=== PATIENT | male | born 1935 | race Caucasian/White ===

== ENCOUNTER 2017-09-27 10:42 | Inpatient (IN) | payer MEDICARE, OTHER ==
[~2017-09-27] VITALS: Ht 177.8 cm; Wt 61.0 kg
[~2017-09-27 10:42] MED LIST: NO HOME MEDS
[2017-09-27 11:14] LABS: BASOPHILS % (AUTO) 0 % (0-1); EOSINOPHILS % (AUTO) 0 % (0-6); HEMATOCRIT 51.7 % (42.0-52.0); HEMOGLOBIN 17.7 g/dl (14.0-17.9); LYMPHOCYTES # (AUTO) 0.4 X10'3 (1.1-4.8); LYMPHOCYTES % (AUTO) 2.4 % (21-51); MEAN CORPUSCULAR HEMOGLOBIN 33.8 PG (27.0-31.0); MEAN CORPUSCULAR HGB CONC 34.2 % (33.0-36.5); MEAN CORPUSCULAR VOLUME 98.9 FL (78-98); MEAN PLATELET VOLUME 8.4 FL (7.4-10.4); MONOCYTES # (AUTO) 0.8 X10'3 (0-0.9); NEUTROPHILS % (AUTO) 92.6 % (42-75); PLATELET COUNT 191 X10'3 (140-440); RED BLOOD COUNT 5.23 X10'6 (4.70-6.10); RED CELL DISTRIBUTION WIDTH 13.8 % (11.5-14.5); WHITE BLOOD COUNT 16.2 X10'3 (4.5-11.0)
[2017-09-27 11:23] LABS: PROTHROMBIN TIME 10.2 SECONDS (9.0-12.0)
[2017-09-27] MEDS ORDERED: ondansetron/PF 4mg/2ml inj IV ONE (11:25)
[2017-09-27] MEDS ORDERED: normal saline 1000ML IV soln IVB ONE ×2 (11:25)
[2017-09-27 11:27] LABS: TOTAL CELLS COUNTED 100
[2017-09-27 11:28] LABS: PLATELET ESTIMATE NORMAL; TOXIC GRANULATION 1+; TOXIC VACUOLATION 1+
[2017-09-27 11:33] LABS: ALANINE AMINOTRANSFERASE 33 U/L (12-78); ALBUMIN 4.5 G/DL (3.4-5.0); ALBUMIN/GLOBULIN RATIO 1.1 (1.1-1.5); ALKALINE PHOSPHATASE 134 IU/L (46-116); ANION GAP 13 (8-16); ASPARTATE AMINO TRANSFERASE 18 U/L (10-37); BILIRUBIN,TOTAL 2.2 MG/DL (0.1-1.0); BLOOD UREA NITROGEN 68 MG/DL (7-18); BUN/CREATININE RATIO 37.2 (5.4-32.0); CALCIUM 11.3 MG/DL (8.5-10.1); CHLORIDE 95 MMOL/L (99-107); CREATININE 1.83 MG/DL (0.60-1.10); GLUCOSE 153 MG/DL (70-104); POTASSIUM 4.2 MMOL/L (3.5-5.1); SODIUM 139 MMOL/L (135-145); TOTAL CARBON DIOXIDE 31.1 MMOL/L (24-32); TOTAL PROTEIN 8.5 G/DL (6.4-8.2); eGFR 36 ML/MIN
[2017-09-27 11:46] LABS: PARTIAL THROMBOPLASTIN TIME 24 SECONDS (22-32)
[2017-09-27 11:57] LABS: LIPASE 154 U/L (73-393)
[2017-09-27 12:15] LABS: CLARITY,URINE CLEAR (Clear); COLOR,URINE AMBER (Yellow); GLUCOSE, URINE NEGATIVE (Neg); KETONES,URINE TRACE mg/dl (Neg); LEUKOCYTE ESTERASE ,URINE NEGATIVE (Neg); NITRITES, URINE NEGATIVE (Neg); OCCULT BLOOD,URINE NEGATIVE (Neg); PROTEIN,URINE 30 mg/dl (Neg); UA COLLECTION TYPE URINAL; UROBILINOGEN,URINE 0.2 E.U/dL (0.2-1.0)
[2017-09-27 12:21] LABS: BACTERIA,URINE FEW /HPF (Neg); CAL OXALATE CRYSTALS 1+ /HPF (NEGATIVE); COARSE GRANULAR CAST 0-3 /LPF (NEGATIVE); HYALINE CASTS >30 /LPF (NEGATIVE); MUCUS STRANDS MANY /LPF (Neg); RBC,URINE 0-2 /HPF (0-2); SQUAMOUS EPITHELIAL CELL,UR FEW /LPF (FEW); TRANSITIONAL EPI CELLS,URINE FEW /HPF; WBC,URINE 0-4 /HPF (0-4)
[2017-09-27] MEDS ORDERED: ondansetron/PF 4mg/2ml inj IV PRN (16:30)
[2017-09-27] MEDS ORDERED: acetaminophen 325mg tablet PO PRN (16:30)
[2017-09-27] MEDS ORDERED: mag hydrox/Alum hydrox/simeth 30ml oral suspension PO PRN (16:30)
[2017-09-27] MEDS ORDERED: magnesium hydroxide 30ml (MOM) UD suspension PO PRN (16:30)
[2017-09-27] MEDS: normal saline 1000ml 1,000 ML IV SCH (17:04)
[2017-09-27] MEDS: heparin, porcine 5000 units/ml vial SQ SCH (20:32)
[2017-09-28] MEDS: normal saline 1000ml 1,000 ML IV SCH ×2 (02:22→15:55)
[2017-09-28 05:58] LABS: BASOPHILS % (AUTO) 0.2 % (0-1); EOSINOPHILS % (AUTO) 0 % (0-6); HEMOGLOBIN 13.6 g/dl (14.0-17.9); LYMPHOCYTES # (AUTO) 0.4 X10'3 (1.1-4.8); MEAN CORPUSCULAR HEMOGLOBIN 34.3 PG (27.0-31.0); MEAN CORPUSCULAR HGB CONC 35.8 % (33.0-36.5); MEAN CORPUSCULAR VOLUME 95.8 FL (78-98); MEAN PLATELET VOLUME 8.4 FL (7.4-10.4); MONOCYTES # (AUTO) 0.7 X10'3 (0-0.9); MONOCYTES % (AUTO) 9.9 % (2-12); NEUTROPHILS # (AUTO) 5.8 X10'3 (1.8-7.7); NEUTROPHILS % (AUTO) 83.9 % (42-75); PLATELET COUNT 155 X10'3 (140-440); RED BLOOD COUNT 3.97 X10'6 (4.70-6.10); RED CELL DISTRIBUTION WIDTH 13.3 % (11.5-14.5)
[2017-09-28 06:00] VITALS: BP 112/69
[2017-09-28 06:50] LABS: ALANINE AMINOTRANSFERASE 25 U/L (12-78); ALBUMIN 2.9 G/DL (3.4-5.0); ALKALINE PHOSPHATASE 88 IU/L (46-116); ANION GAP 11 (8-16); ASPARTATE AMINO TRANSFERASE 16 U/L (10-37); BILIRUBIN,TOTAL 1.5 MG/DL (0.1-1.0); BLOOD UREA NITROGEN 65 MG/DL (7-18); CALCIUM 8.7 MG/DL (8.5-10.1); CHLORIDE 108 MMOL/L (99-107); CREATININE 0.97 MG/DL (0.60-1.10); GLUCOSE 108 MG/DL (70-104); POTASSIUM 3.2 MMOL/L (3.5-5.1); SODIUM 144 MMOL/L (135-145); TOTAL CARBON DIOXIDE 25.4 MMOL/L (24-32); TOTAL PROTEIN 5.7 G/DL (6.4-8.2); eGFR 74 ML/MIN
[2017-09-28] MEDS: heparin, porcine 5000 units/ml vial SQ SCH ×2 (08:00→20:00)
[2017-09-28 10:00] VITALS: BP 106/55
[2017-09-28] MEDS ORDERED: potassium Cl 40MEQ/NS 500ml 500 ML IV PRN ×4 (10:00→12:40)
[2017-09-28] MEDS ORDERED: potassium Cl 20 mEq SR tablet PO PRN ×4 (10:00→12:40)
[2017-09-28] MEDS ORDERED: proCHLORperazine 10 MG/2 ml inj IV PRN (10:00)
[2017-09-28] MEDS ORDERED: K and/or MAG REPLACEMENT MC SCH (12:40)
[2017-09-28 18:00] VITALS: BP 109/69
[2017-09-28 22:00] VITALS: BP 95/61
[2017-09-29] MEDS: normal saline 1000ml 1,000 ML IV SCH (04:45)
[2017-09-29 05:51] LABS: BASOPHILS % (AUTO) 0.3 % (0-1); EOSINOPHILS # (AUTO) 0.1 X10'3 (0-0.9); EOSINOPHILS % (AUTO) 1.3 % (0-6); HEMATOCRIT 38.5 % (42.0-52.0); HEMOGLOBIN 13.5 g/dl (14.0-17.9); LYMPHOCYTES # (AUTO) 0.6 X10'3 (1.1-4.8); LYMPHOCYTES % (AUTO) 11.3 % (21-51); MEAN CORPUSCULAR HEMOGLOBIN 34.4 PG (27.0-31.0); MEAN CORPUSCULAR HGB CONC 35.1 % (33.0-36.5); MEAN PLATELET VOLUME 8.8 FL (7.4-10.4); MONOCYTES # (AUTO) 0.5 X10'3 (0-0.9); MONOCYTES % (AUTO) 9.6 % (2-12); NEUTROPHILS # (AUTO) 4.4 X10'3 (1.8-7.7); NEUTROPHILS % (AUTO) 77.5 % (42-75); PLATELET COUNT 139 X10'3 (140-440); RED BLOOD COUNT 3.92 X10'6 (4.70-6.10); RED CELL DISTRIBUTION WIDTH 14.1 % (11.5-14.5); WHITE BLOOD COUNT 5.6 X10'3 (4.5-11.0)
[2017-09-29 06:18] LABS: ALANINE AMINOTRANSFERASE 26 U/L (12-78); ALBUMIN 2.7 G/DL (3.4-5.0); ALBUMIN/GLOBULIN RATIO 0.9 (1.1-1.5); ALKALINE PHOSPHATASE 80 IU/L (46-116); ANION GAP 6 (8-16); ASPARTATE AMINO TRANSFERASE 19 U/L (10-37); BILIRUBIN,TOTAL 1.2 MG/DL (0.1-1.0); BLOOD UREA NITROGEN 35 MG/DL (7-18); BUN/CREATININE RATIO 45.5 (5.4-32.0); CALCIUM 8.7 MG/DL (8.5-10.1); CHLORIDE 111 MMOL/L (99-107); CREATININE 0.77 MG/DL (0.60-1.10); GLUCOSE 79 MG/DL (70-104); POTASSIUM 3.9 MMOL/L (3.5-5.1); SODIUM 145 MMOL/L (135-145); TOTAL CARBON DIOXIDE 28.2 MMOL/L (24-32); TOTAL PROTEIN 5.6 G/DL (6.4-8.2); eGFR > 90 ML/MIN
[2017-09-29] MEDS ORDERED: multivitamins, therapeutics tablet PO SCH (08:00)
== END 2017-09-29 10:07 | disposition home or self-care (01) | DRG 394 ==
LOC: ER 10:43 → ED HOLD 16:27 → EDBEDREQDT 09-28 01:28 → EDBEDREQTM 09-28 01:28 → ORTHO 4S 09-28 01:56
PROVIDERS: ADMIT Internal Medicine; ATTEND Surgery
DX: K40.30 Unilateral inguinal hernia, with obstruction, without gangrene, not specified as recurrent (principal); N17.9 Acute kidney failure, unspecified; Z96.643 Presence of artificial hip joint, bilateral; Z88.2 Allergy status to sulfonamides; Z80.0 Family history of malignant neoplasm of digestive organs
CPT/HCPCS: 36415; 71045; 74018; 74176; 80053; 81001; 83690; 84484; 85025; 85610; 85730; 87070; 96361; 96374; 97162; 97530; 99285; A6209; A6212; A6213; J0780; J1644; J2405; J3480; J7030

== ENCOUNTER 2018-06-25 12:42 | Emergency (ER) | payer MEDICARE ==
[~2018-06-25] VITALS: Ht 162.6 cm; Wt 45.0 kg
[2018-06-25 13:35] LABS: BASOPHILS % (AUTO) 0.2 % (0-1); EOSINOPHILS % (AUTO) 0.1 % (0-6); HEMATOCRIT 42.6 % (42.0-52.0); HEMOGLOBIN 14.4 g/dl (14.0-17.9); LYMPHOCYTES # (AUTO) 0.6 X10'3 (1.1-4.8); LYMPHOCYTES % (AUTO) 9.4 % (21-51); MEAN CORPUSCULAR HEMOGLOBIN 34.1 PG (27.0-31.0); MEAN CORPUSCULAR HGB CONC 33.8 % (33.0-36.5); MEAN CORPUSCULAR VOLUME 100.7 FL (78-98); MEAN PLATELET VOLUME 8.9 FL (7.4-10.4); MONOCYTES # (AUTO) 0.4 X10'3 (0-0.9); MONOCYTES % (AUTO) 5.6 % (2-12); NEUTROPHILS # (AUTO) 5.6 X10'3 (1.8-7.7); NEUTROPHILS % (AUTO) 84.7 % (42-75); PLATELET COUNT 75 X10'3 (140-440); RED BLOOD COUNT 4.23 X10'6 (4.70-6.10); RED CELL DISTRIBUTION WIDTH 14.9 % (11.5-14.5); WHITE BLOOD COUNT 6.6 X10'3 (4.5-11.0)
[2018-06-25 13:47] LABS: PROTHROMBIN TIME 9.8 SECONDS (9.0-12.0)
[2018-06-25 13:48] LABS: ALANINE AMINOTRANSFERASE 35 U/L (12-78); ALBUMIN 4.1 G/DL (3.4-5.0); ALBUMIN/GLOBULIN RATIO 1.4 (1.1-1.5); ALKALINE PHOSPHATASE 128 IU/L (46-116); ANION GAP 12 (8-16); ASPARTATE AMINO TRANSFERASE 22 U/L (10-37); BILIRUBIN,TOTAL 1.3 MG/DL (0.1-1.0); BLOOD UREA NITROGEN 22 MG/DL (7-18); BUN/CREATININE RATIO 33.3 (5.4-32.0); CALCIUM 10.5 MG/DL (8.5-10.1); CHLORIDE 102 MMOL/L (99-107); CREATININE 0.66 MG/DL (0.60-1.10); GLUCOSE 99 MG/DL (70-104); POTASSIUM 4.8 MMOL/L (3.5-5.1); SODIUM 140 MMOL/L (135-145); TOTAL CARBON DIOXIDE 26.1 MMOL/L (24-32); TOTAL PROTEIN 7.1 G/DL (6.4-8.2); eGFR > 90 ML/MIN
[2018-06-25 15:00] VITALS: BP 126/70
[2018-06-25 15:27] LABS: CLARITY,URINE SLIGHTLY CLOUDY (Clear); COLOR,URINE YELLOW (Yellow); GLUCOSE, URINE NEGATIVE (Neg); KETONES,URINE 40 mg/dl (Neg); LEUKOCYTE ESTERASE ,URINE NEGATIVE (Neg); NITRITES, URINE NEGATIVE (Neg); OCCULT BLOOD,URINE NEGATIVE (Neg); PH,URINE 6.5 (4.8-8.0); PROTEIN,URINE NEGATIVE (Neg); UROBILINOGEN,URINE 0.2 E.U/dL (0.2-1.0)
[2018-06-25 15:28] LABS: UA COLLECTION TYPE CLN CATCH MIDSTREAM
[2018-06-25 15:39] LABS: HYALINE CASTS 0-3 /LPF (NEGATIVE); MUCUS STRANDS FEW /LPF (Neg); SQUAMOUS EPITHELIAL CELL,UR FEW /LPF (FEW)
[2018-06-25 15:43] LABS: AMORPHOUS URATES 1+; BACTERIA,URINE FEW /HPF (Neg); RBC,URINE 0-2 /HPF (0-2); WBC,URINE 0-4 /HPF (0-4)
== END 2018-06-25 17:06 | disposition home or self-care (01) ==
LOC: ER 12:43
DX: R10.31 Right lower quadrant pain (principal); R10.11 Right upper quadrant pain; Z88.2 Allergy status to sulfonamides; Z98.890 Other specified postprocedural states
CPT/HCPCS: 36415; 74176; 80053; 81001; 85025; 85610; 99284

== ENCOUNTER 2018-08-31 11:37 | Emergency (ER) | payer MEDICARE ==
[~2018-08-31] VITALS: Ht 162.6 cm; Wt 57.0 kg
[2018-08-31 12:27] VITALS: BP 131/67
[2018-08-31 15:18] LABS: CLARITY,URINE CLEAR (Clear); COLOR,URINE YELLOW (Yellow); GLUCOSE, URINE NEGATIVE (Neg); KETONES,URINE 15 mg/dl (Neg); LEUKOCYTE ESTERASE ,URINE NEGATIVE (Neg); NITRITES, URINE NEGATIVE (Neg); OCCULT BLOOD,URINE NEGATIVE (Neg); PROTEIN,URINE TRACE mg/dl (Neg); UROBILINOGEN,URINE 0.2 E.U/dL (0.2-1.0)
[2018-08-31 15:23] LABS: UA COLLECTION TYPE URINAL
[2018-08-31 15:25] LABS: WBC,URINE 0-4 /HPF (0-4)
[2018-08-31 15:26] LABS: BACTERIA,URINE NONE SEEN /HPF (Neg); RBC,URINE NONE SEEN /HPF (0-2); SQUAMOUS EPITHELIAL CELL,UR FEW /LPF (FEW)
[2018-08-31 15:34] LABS: ALANINE AMINOTRANSFERASE 32 U/L (12-78); ALBUMIN 3.9 G/DL (3.4-5.0); ALBUMIN/GLOBULIN RATIO 1.3 (1.1-1.5); ALKALINE PHOSPHATASE 198 IU/L (46-116); ANION GAP 7 (8-16); ASPARTATE AMINO TRANSFERASE 25 U/L (10-37); BILIRUBIN,TOTAL 1.5 MG/DL (0.1-1.0); BLOOD UREA NITROGEN 25 MG/DL (7-18); BUN/CREATININE RATIO 38.5 (5.4-32.0); CHLORIDE 104 MMOL/L (99-107); CREATININE 0.65 MG/DL (0.60-1.10); GLUCOSE 93 MG/DL (70-104); LIPASE 74 U/L (73-393); POTASSIUM 4.3 MMOL/L (3.5-5.1); SODIUM 140 MMOL/L (135-145); TOTAL CARBON DIOXIDE 28.6 MMOL/L (24-32); eGFR > 90 ML/MIN
[2018-08-31 15:54] LABS: BASOPHILS # (AUTO) 0.1 X10'3 (0-0.2); BASOPHILS % (AUTO) 0.9 % (0-1); EOSINOPHILS % (AUTO) 0.7 % (0-6); HEMATOCRIT 43.7 % (42.0-52.0); HEMOGLOBIN 14.6 g/dl (14.0-17.9); LYMPHOCYTES # (AUTO) 0.5 X10'3 (1.1-4.8); LYMPHOCYTES % (AUTO) 8.4 % (21-51); MEAN CORPUSCULAR HEMOGLOBIN 34.2 PG (27.0-31.0); MEAN CORPUSCULAR HGB CONC 33.5 g/dL (33.0-36.5); MEAN CORPUSCULAR VOLUME 102.2 FL (78-98); MEAN PLATELET VOLUME 8.9 FL (7.4-10.4); MONOCYTES # (AUTO) 0.4 X10'3 (0-0.9); MONOCYTES % (AUTO) 7.5 % (2-12); NEUTROPHILS # (AUTO) 4.9 X10'3 (1.8-7.7); NEUTROPHILS % (AUTO) 82.5 % (42-75); PLATELET COUNT 57 X10'3 (140-440); RED BLOOD COUNT 4.27 X10'6 (4.70-6.10); WHITE BLOOD COUNT 5.9 X10'3 (4.5-11.0)
== END 2018-08-31 17:09 | disposition home or self-care (01) ==
LOC: ER 11:37
DX: K42.9 Umbilical hernia without obstruction or gangrene (principal); K59.00 Constipation, unspecified; Z88.2 Allergy status to sulfonamides
CPT/HCPCS: 36415; 74176; 80053; 81001; 83690; 85025; 99284

== ENCOUNTER 2019-06-05 09:52 | Inpatient (IN) | payer MEDICARE ==
[~2019-06-05] VITALS: Ht 160 cm; Wt 56.0 kg
--- NOTE | 2019-06-05 10:14 | NUR ---
patient to ct.
[2019-06-05 10:56] LABS: BASOPHILS % (AUTO) 0.7 % (0-1); EOSINOPHILS # (AUTO) 0.1 X10'3 (0-0.9); EOSINOPHILS % (AUTO) 1.5 % (0-6); HEMATOCRIT 43.9 % (42.0-52.0); HEMOGLOBIN 14.9 g/dl (14.0-17.9); LYMPHOCYTES # (AUTO) 0.6 X10'3 (1.1-4.8); LYMPHOCYTES % (AUTO) 9.8 % (21-51); MEAN CORPUSCULAR HEMOGLOBIN 35.3 PG (27.0-31.0); MEAN CORPUSCULAR VOLUME 104.1 FL (78-98); MEAN PLATELET VOLUME 9.9 FL (7.4-10.4); MONOCYTES # (AUTO) 0.4 X10'3 (0-0.9); MONOCYTES % (AUTO) 6.2 % (2-12); NEUTROPHILS # (AUTO) 4.7 X10'3 (1.8-7.7); NEUTROPHILS % (AUTO) 81.8 % (42-75); PLATELET COUNT 62 X10'3 (140-440); RED BLOOD COUNT 4.22 X10'6 (4.70-6.10); RED CELL DISTRIBUTION WIDTH 14.9 % (11.5-14.5); WHITE BLOOD COUNT 5.8 X10'3 (4.5-11.0)
[2019-06-05 11:01] LABS: PARTIAL THROMBOPLASTIN TIME 26 SECONDS (22-32)
[2019-06-05 11:05] LABS: ALANINE AMINOTRANSFERASE 35 U/L (12-78); ALBUMIN/GLOBULIN RATIO 1.4 (1.1-1.5); ALKALINE PHOSPHATASE 96 IU/L (46-116); ANION GAP 8 (8-16); ASPARTATE AMINO TRANSFERASE 23 U/L (10-37); BILIRUBIN,TOTAL 1.1 MG/DL (0.1-1.0); BLOOD UREA NITROGEN 26 MG/DL (7-18); BUN/CREATININE RATIO 41.3 (5.4-32.0); CALCIUM 9.7 MG/DL (8.5-10.1); CHLORIDE 108 MMOL/L (99-107); CREATININE 0.63 MG/DL (0.60-1.10); GLUCOSE 88 MG/DL (70-104); POTASSIUM 4.2 MMOL/L (3.5-5.1); SODIUM 145 MMOL/L (135-145); TOTAL CARBON DIOXIDE 28.7 MMOL/L (24-32); TOTAL PROTEIN 6.9 G/DL (6.4-8.2); eGFR > 90 ML/MIN
[2019-06-05 11:08] LABS: TROPONIN I < 0.04 NG/ML (0.0-0.05)
[2019-06-05 11:42] LABS: CLARITY,URINE CLEAR (Clear); COLOR,URINE YELLOW (Yellow); GLUCOSE, URINE NEGATIVE (Neg); KETONES,URINE 15 mg/dl (Neg); LEUKOCYTE ESTERASE ,URINE NEGATIVE (Neg); NITRITES, URINE NEGATIVE (Neg); OCCULT BLOOD,URINE NEGATIVE (Neg); PH,URINE 6.5 (4.8-8.0); PROTEIN,URINE NEGATIVE (Neg); UA COLLECTION TYPE STRAIGHT CATH; UROBILINOGEN,URINE 0.2 E.U/dL (0.2-1.0)
[2019-06-05] MEDS ORDERED: ondansetron/PF 4mg/2ml inj IV PRN (12:30)
[2019-06-05] MEDS ORDERED: acetaminophen 325mg tablet PO PRN (12:30)
[2019-06-05] MEDS ORDERED: mag hydrox/Alum hydrox/simeth 30ml oral suspension PO PRN (12:30)
[2019-06-05] MEDS ORDERED: magnesium hydroxide 30ml (MOM) UD suspension PO PRN (12:30)
[2019-06-05] MEDS ORDERED: normal saline 1000ML IV soln IVB ONE (12:35)
--- NOTE | 2019-06-05 13:09 | NUR ---
Patient will be going to MRI and then to floor, Neal MICHEL aware and will inform Sandrita MICHEL regarding change in plan of care/transport.
[2019-06-05 13:11] LABS: CHOL/HDL RATIO 2.4 (0.00-4.99); CHOLESTEROL 181 MG/DL (0-200); HDL CHOLESTEROL 75 MG/DL (35-60); LDL CHOLESTEROL 106 MG/DL (50-100); TRIGLYCERIDES 55 MG/DL (20-135)
--- NOTE | 2019-06-05 14:00 | NUR ---
Patient in room ORTHO 4020. I have received report from DEVANG MICHEL and had the opportunity to ask questions and assume patient care.
[2019-06-05 14:10] VITALS: BP 102/61
[2019-06-05] MEDS ORDERED: aspirin 325mg tablet PO ONE (14:20)
[2019-06-05] MEDS: normal saline 1000ml 1,000 ML IV SCH ×2 (14:22→22:28)
--- NOTE | 2019-06-05 15:36 | NUR ---
PAGER ID: [phone] MESSAGE: ESTUARDO [phone] RE: LIBORIO [id number] POSITIVE STROKE, LDL 106 NEEDS STATIN PLEASE.
[2019-06-05 18:00] VITALS: BP 109/85
--- NOTE | 2019-06-05 18:00 | NUR ---
Received report from Palmer MICHEL. assumed care of patient.
--- NOTE | 2019-06-05 18:03 | NUR ---
Problems reprioritized. Patient report given, questions answered & plan of care reviewed with DRAGAN RN.
[2019-06-05] MEDS: heparin, porcine 5000 units/ml vial SQ SCH (20:00)
--- NOTE | 2019-06-05 20:06 | NUR ---
patient's platelet level was 62. Called Dr. Weston inquiring about patient heparin dose tonight at 20:00. Trista advised to hold the heparin for tonight, place patient on SCD's and readjust heparin dose in the morning. will continue to monitor patient.
[2019-06-05] MEDS: atorvastatin 20mg tablet PO SCH (20:20)
[2019-06-05 22:00] VITALS: BP 122/69
--- NOTE | 2019-06-06 00:10 | NUR ---
pt attempted to get out of bed. I went in there and asked the patient if he needed something. pt was a little confused and disoriented at this time. pt denied any pain. pt requested to get into the recliner because the bed was uncomfortable. I helped change the patient because he had an episode of incontinence. he was getting a little agitated with Jamil MICHEL and I. we tried to reassure him and let him know what we were doing. pt is currently in recliner with clean sheets and is currently resting comfortably. will continue to monitor.
[2019-06-06] MEDS: normal saline 1000ml 1,000 ML IV SCH ×2 (00:14→09:16)
[2019-06-06 02:00] VITALS: BP 135/74
[2019-06-06 05:31] LABS: BASOPHILS # (AUTO) 0.1 X10'3 (0-0.2); BASOPHILS % (AUTO) 0.9 % (0-1); EOSINOPHILS # (AUTO) 0.1 X10'3 (0-0.9); EOSINOPHILS % (AUTO) 1.4 % (0-6); HEMATOCRIT 38.8 % (42.0-52.0); HEMOGLOBIN 13.6 g/dl (14.0-17.9); LYMPHOCYTES # (AUTO) 0.8 X10'3 (1.1-4.8); LYMPHOCYTES % (AUTO) 12.2 % (21-51); MEAN CORPUSCULAR HEMOGLOBIN 35.3 PG (27.0-31.0); MEAN CORPUSCULAR HGB CONC 35.1 g/dL (33.0-36.5); MEAN CORPUSCULAR VOLUME 100.7 FL (78-98); MEAN PLATELET VOLUME 9.8 FL (7.4-10.4); MONOCYTES # (AUTO) 0.4 X10'3 (0-0.9); MONOCYTES % (AUTO) 6.4 % (2-12); NEUTROPHILS # (AUTO) 5.3 X10'3 (1.8-7.7); NEUTROPHILS % (AUTO) 79.1 % (42-75); PLATELET COUNT 63 X10'3 (140-440); RED BLOOD COUNT 3.86 X10'6 (4.70-6.10); RED CELL DISTRIBUTION WIDTH 14.5 % (11.5-14.5); WHITE BLOOD COUNT 6.7 X10'3 (4.5-11.0)
[2019-06-06 05:45] LABS: ALBUMIN 3.4 G/DL (3.4-5.0); ANION GAP 9 (8-16); BLOOD UREA NITROGEN 21 MG/DL (7-18); BUN/CREATININE RATIO 37.5 (5.4-32.0); CALCIUM 8.8 MG/DL (8.5-10.1); CHLORIDE 106 MMOL/L (99-107); CREATININE 0.56 MG/DL (0.60-1.10); GLUCOSE 90 MG/DL (70-104); POTASSIUM 3.9 MMOL/L (3.5-5.1); SODIUM 140 MMOL/L (135-145); eGFR > 90 ML/MIN
[2019-06-06 06:00] VITALS: BP 93/65
--- NOTE | 2019-06-06 06:00 | NUR ---
Gave report to Amisha MICHEL.
--- NOTE | 2019-06-06 06:11 | NUR ---
received report from edwin link
[2019-06-06] MEDS: heparin, porcine 5000 units/ml vial SQ SCH ×2 (07:59→20:00)
[2019-06-06] MEDS: aspirin 81mg tab.chew PO SCH (08:05)
[2019-06-06 10:00] VITALS: BP 101/65
--- NOTE | 2019-06-06 13:27 | NUR ---
Paged Corine regarding pt lab sets. PAGER ID: [phone] MESSAGE: [phone] Shine: Unable to order D3 or Folate lab set. Labs needs to be ordered and approved by pathologist available only during the week. Thanks -Stephany [phone]
[2019-06-06 14:00] VITALS: BP 93/55
[2019-06-06 18:00] VITALS: BP 96/61
--- NOTE | 2019-06-06 18:14 | NUR ---
gave report to edwin baker
--- NOTE | 2019-06-06 18:43 | NUR ---
REPORT REC'D FROM ANAND HALL. AND ANAND LUNA.
[2019-06-06] MEDS: atorvastatin 20mg tablet PO SCH (20:15)
[2019-06-06 22:00] VITALS: BP 127/57
--- NOTE | 2019-06-06 22:51 | NUR ---
pt is taking off gown and is getting resistive to care. he is confused about his whereabouts, reoriented by staff but is still confused. tabs alarm to gown, bedding changed for incontinence. pt is not a candidate for condomcatheter as he is pulling at lines. SL at this time.
--- NOTE | 2019-06-07 02:52 | NUR ---
PT IS RESTLESS AND IS MORE AGGITATED WITH SCD'S ON. PULLING AT CLOTHING AND SCD'S , WILL REMOVE FOR BREAK.
[2019-06-07 06:00] VITALS: BP 80/57
--- NOTE | 2019-06-07 06:02 | NUR ---
REPORT GIVEN TO ANAND HALL.
--- NOTE | 2019-06-07 06:09 | NUR ---
received report from edwin baker
[2019-06-07 06:18] LABS: BASOPHILS # (AUTO) 0.1 X10'3 (0-0.2); BASOPHILS % (AUTO) 1.2 % (0-1); EOSINOPHILS # (AUTO) 0.2 X10'3 (0-0.9); EOSINOPHILS % (AUTO) 3.5 % (0-6); HEMATOCRIT 36.4 % (42.0-52.0); HEMOGLOBIN 12.7 g/dl (14.0-17.9); LYMPHOCYTES # (AUTO) 0.9 X10'3 (1.1-4.8); MEAN CORPUSCULAR HEMOGLOBIN 35.5 PG (27.0-31.0); MEAN CORPUSCULAR HGB CONC 34.9 g/dL (33.0-36.5); MEAN CORPUSCULAR VOLUME 101.7 FL (78-98); MEAN PLATELET VOLUME 9.4 FL (7.4-10.4); MONOCYTES # (AUTO) 0.4 X10'3 (0-0.9); MONOCYTES % (AUTO) 7.2 % (2-12); NEUTROPHILS # (AUTO) 3.6 X10'3 (1.8-7.7); NEUTROPHILS % (AUTO) 71.1 % (42-75); PLATELET COUNT 54 X10'3 (140-440); RED BLOOD COUNT 3.58 X10'6 (4.70-6.10); RED CELL DISTRIBUTION WIDTH 14.3 % (11.5-14.5); WHITE BLOOD COUNT 5.1 X10'3 (4.5-11.0)
[2019-06-07 06:32] LABS: ANION GAP 8 (8-16); BLOOD UREA NITROGEN 20 MG/DL (7-18); BUN/CREATININE RATIO 30.8 (5.4-32.0); CALCIUM 8.9 MG/DL (8.5-10.1); CHLORIDE 108 MMOL/L (99-107); CREATININE 0.65 MG/DL (0.60-1.10); GLUCOSE 82 MG/DL (70-104); POTASSIUM 3.8 MMOL/L (3.5-5.1); SODIUM 141 MMOL/L (135-145); TOTAL CARBON DIOXIDE 25.5 MMOL/L (24-32); eGFR > 90 ML/MIN
[2019-06-07 06:40] LABS: PLATELET ESTIMATE DECREASED
--- NOTE | 2019-06-07 06:40 | NUR ---
sent a page to hospitalist b/c tele called to tell me that pts heart rate is in the 40s and pt is in [place], no new orders at this time, continue to monitor
[2019-06-07] MEDS: aspirin 81mg tab.chew PO SCH (07:05)
[2019-06-07] MEDS: heparin, porcine 5000 units/ml vial SQ SCH ×2 (07:05→20:00)
[2019-06-07 10:00] VITALS: BP 86/52
[2019-06-07 14:00] VITALS: BP 97/62
--- NOTE | 2019-06-07 18:09 | NUR ---
GAVE REPORT TO ANAND CISNEROS
--- NOTE | 2019-06-07 18:10 | NUR ---
RECEIVED REPORT FROM ISABEL MICHEL AND ASSUMED PATIENT CARE
[2019-06-07 18:11] VITALS: BP 94/60
--- NOTE | 2019-06-07 20:21 | NUR ---
DR. GUY CALLED REGARDING LOW PLATELET LEVEL AND ADMINISTRATION OF 2000 DOSE OF HEPARIN. ADVISED FOLLOWING UP WITH [facility] WHO IS MANAGING PATIENTS CARE.
[2019-06-07] MEDS: atorvastatin 20mg tablet PO SCH (20:24)
[2019-06-07 22:05] VITALS: BP 103/67
[2019-06-08 06:00] VITALS: BP 81/41
--- NOTE | 2019-06-08 06:06 | NUR ---
RECEIVED REPORT FROM ANAND CISNEROS
--- NOTE | 2019-06-08 06:13 | NUR ---
REPORT GIVEN TO ISABEL MICHEL
[2019-06-08] MEDS: heparin, porcine 5000 units/ml vial SQ SCH (07:53)
[2019-06-08] MEDS: aspirin 81mg tab.chew PO SCH (07:53)
--- NOTE | 2019-06-08 07:54 | NUR ---
SINCE PT HAS BEEN IN HOSPITAL, HOSPITALIST AWARE OF PT LOW PLT LEVEL, UNABLE TO ADMIN HEPARIN FOR PT LOW PLT LEVEL, CONTINUE TO MONITOR
[2019-06-08 10:00] VITALS: BP 115/65
--- NOTE | 2019-06-08 14:38 | NUR ---
gave report to edwin baum at [facility]
--- NOTE | 2019-06-08 16:20 | NUR ---
PT D/C WITH ALL BELONGINGS ACCOMPANIED BY AND [place] PERSON[employer]EL TO GO TO [facility]
== END 2019-06-08 16:15 | DRG 66 ==
LOC: ER 09:53 → ED HOLD 12:28 → ORTHO 4S 14:06
PROVIDERS: ADMIT Family Medicine; ATTEND Hospitalist
DX: I63.9 Cerebral infarction, unspecified (principal); F03.90 Unspecified dementia, unspecified severity, without behavioral disturbance, psychotic disturbance, mood disturbance, and anxiety; Z86.73 Personal history of transient ischemic attack (TIA), and cerebral infarction without residual deficits; Z88.2 Allergy status to sulfonamides
CPT/HCPCS: 36415; 70450; 70544; 70551; 71045; 80048; 80053; 80061; 81003; 82607; 82948; 84443; 84484; 85025; 85610; 85730; 87081; 92508; 92616; 93308; 93880; 97110; 97116; 97162; 97530; 99285; G0378; J1644; J7030

== ENCOUNTER 2019-12-13 06:10 | Emergency (ER) | payer MEDICARE ==
[~2019-12-13] VITALS: Ht 167.6 cm; Wt 60.0 kg
[2019-12-13] MEDS ORDERED: TETanus/Pertussis (Acell)/Diphther VAC/PF (Tdap-Adult) 0.5ml syringe IMVAC ONE (06:25)
[2019-12-13] MEDS ORDERED: bacitracin 15gm ointment TP ONE (06:55)
[2019-12-13] MEDS ORDERED: acetaminophen 325mg tablet PO ONE (07:25)
[2019-12-13 11:33] VITALS: BP 110/60
== END 2019-12-13 11:37 | disposition home or self-care (01) ==
LOC: ER 06:11
DX: S51.811A Laceration without foreign body of right forearm, initial encounter (principal); S16.1XXA Strain of muscle, fascia and tendon at neck level, initial encounter; T14.8XXA Other injury of unspecified body region, initial encounter; F03.90 Unspecified dementia, unspecified severity, without behavioral disturbance, psychotic disturbance, mood disturbance, and anxiety; Z88.2 Allergy status to sulfonamides; W18.30XA Fall on same level, unspecified, initial encounter; Y93.89 Activity, other specified; Y92.89 Other specified places as the place of occurrence of the external cause; Y99.8 Other external cause status
CPT/HCPCS: 70450; 72125; 90471; 90715; 99285

== ENCOUNTER 2019-12-14 12:35 | Emergency (ER) | payer MEDICARE ==
[~2019-12-14] VITALS: Ht 167.6 cm; Wt 60.3 kg
--- NOTE | 2019-12-14 13:18 | NUR ---
per ems unit [address], due to home conditions he will be filing an aps report. stephanie Fitzgerald.
[2019-12-14] MEDS ORDERED: ketorolac tromethamine 15mg/ml inj. IM ONE (13:50)
[2019-12-14 15:01] VITALS: BP 110/78
== END 2019-12-14 15:03 | disposition home or self-care (01) ==
LOC: ER 12:35
DX: M25.511 Pain in right shoulder (principal); F03.90 Unspecified dementia, unspecified severity, without behavioral disturbance, psychotic disturbance, mood disturbance, and anxiety; Z98.890 Other specified postprocedural states; Z88.2 Allergy status to sulfonamides
CPT/HCPCS: 73030; 96372; 99284; J1885

== ENCOUNTER 2020-02-25 18:41 | Emergency (ER) | payer MEDICARE ==
[~2020-02-25] VITALS: Ht 167.6 cm; Wt 58.2 kg
[2020-02-25 19:58] LABS: BASOPHILS # (AUTO) 0.1 X10'3 (0-0.2); BASOPHILS % (AUTO) 1.1 % (0-1); EOSINOPHILS # (AUTO) 0.1 X10'3 (0-0.9); EOSINOPHILS % (AUTO) 2.1 % (0-6); HEMATOCRIT 38.3 % (42.0-52.0); LYMPHOCYTES # (AUTO) 0.9 X10'3 (1.1-4.8); LYMPHOCYTES % (AUTO) 14.4 % (21-51); MEAN CORPUSCULAR HEMOGLOBIN 33.6 PG (27.0-31.0); MEAN CORPUSCULAR HGB CONC 34.1 g/dL (33.0-36.5); MEAN CORPUSCULAR VOLUME 98.5 FL (78-98); MEAN PLATELET VOLUME 9.7 FL (7.4-10.4); MONOCYTES # (AUTO) 0.5 X10'3 (0-0.9); NEUTROPHILS # (AUTO) 4.4 X10'3 (1.8-7.7); NEUTROPHILS % (AUTO) 74.4 % (42-75); PLATELET COUNT 75 X10'3 (140-440); RED BLOOD COUNT 3.89 X10'6 (4.70-6.10); RED CELL DISTRIBUTION WIDTH 15.2 % (11.5-14.5); WHITE BLOOD COUNT 5.9 X10'3 (4.5-11.0)
[2020-02-25 20:19] LABS: ALANINE AMINOTRANSFERASE 25 U/L (12-78); ALBUMIN 3.4 G/DL (3.4-5.0); ALBUMIN/GLOBULIN RATIO 1.1 (1.1-1.5); ALKALINE PHOSPHATASE 312 IU/L (46-116); ANION GAP 7 (8-16); ASPARTATE AMINO TRANSFERASE 17 U/L (10-37); BLOOD UREA NITROGEN 24 MG/DL (7-18); CALCIUM 9.6 MG/DL (8.5-10.1); CHLORIDE 109 MMOL/L (99-107); CREATININE 0.75 MG/DL (0.60-1.10); GLUCOSE 115 MG/DL (70-104); SODIUM 141 MMOL/L (135-145); TOTAL PROTEIN 6.4 G/DL (6.4-8.2); eGFR > 90 ML/MIN
[2020-02-25 20:32] LABS: CLARITY,URINE CLEAR (Clear); COLOR,URINE AMBER (Yellow); GLUCOSE, URINE NEGATIVE (Neg); KETONES,URINE TRACE mg/dl (Neg); LEUKOCYTE ESTERASE ,URINE NEGATIVE (Neg); NITRITES, URINE NEGATIVE (Neg); OCCULT BLOOD,URINE NEGATIVE (Neg); PH,URINE 5.5 (4.8-8.0); PROTEIN,URINE NEGATIVE (Neg); UROBILINOGEN,URINE 0.2 E.U/dL (0.2-1.0)
[2020-02-25 20:38] VITALS: BP 128/80
[2020-02-25 20:40] LABS: UA COLLECTION TYPE CLN CATCH MIDSTREAM
[2020-02-25] MEDS ORDERED: risperiDONE 0.5mg tablet PO ONE (20:50)
[2020-02-25] MEDS ORDERED: RISP0.5T74 PO (20:53)
== END 2020-02-25 21:30 | disposition home or self-care (01) ==
LOC: ER 18:42
DX: F03.90 Unspecified dementia, unspecified severity, without behavioral disturbance, psychotic disturbance, mood disturbance, and anxiety (principal); R41.0 Disorientation, unspecified; Z98.890 Other specified postprocedural states; Z88.2 Allergy status to sulfonamides; Z79.899 Other long term (current) drug therapy
CPT/HCPCS: 36415; 71045; 80053; 81003; 84145; 85025; 93005; 99285

== ENCOUNTER 2020-02-29 18:11 | Emergency (ER) | payer MEDICARE ==
[~2020-02-29] VITALS: Ht 177.8 cm; Wt 77.3 kg
[~2020-02-29 18:11] MED LIST changes: +RISP0.5T74 PO
[2020-02-29] MEDS ORDERED: normal saline 1000ML IV soln IVB ONE (18:20)
[2020-02-29 19:08] LABS: BASOPHILS # (AUTO) 0.1 X10'3 (0-0.2); BASOPHILS % (AUTO) 0.7 % (0-1); EOSINOPHILS # (AUTO) 0.1 X10'3 (0-0.9); EOSINOPHILS % (AUTO) 0.7 % (0-6); HEMATOCRIT 39.6 % (42.0-52.0); HEMOGLOBIN 13.2 g/dl (14.0-17.9); LYMPHOCYTES # (AUTO) 0.5 X10'3 (1.1-4.8); LYMPHOCYTES % (AUTO) 5.5 % (21-51); MEAN CORPUSCULAR HEMOGLOBIN 32.9 PG (27.0-31.0); MEAN CORPUSCULAR HGB CONC 33.4 g/dL (33.0-36.5); MEAN CORPUSCULAR VOLUME 98.4 FL (78-98); MEAN PLATELET VOLUME 9.8 FL (7.4-10.4); MONOCYTES # (AUTO) 0.5 X10'3 (0-0.9); MONOCYTES % (AUTO) 5.7 % (2-12); NEUTROPHILS # (AUTO) 7.3 X10'3 (1.8-7.7); NEUTROPHILS % (AUTO) 87.4 % (42-75); PLATELET COUNT 90 X10'3 (140-440); RED BLOOD COUNT 4.03 X10'6 (4.70-6.10); RED CELL DISTRIBUTION WIDTH 15.5 % (11.5-14.5); WHITE BLOOD COUNT 8.4 X10'3 (4.5-11.0)
[2020-02-29 19:11] VITALS: BP 104/64
[2020-02-29 19:11] LABS: PARTIAL THROMBOPLASTIN TIME 26 SECONDS (22-32)
[2020-02-29 19:18] LABS: GLUCOSE 177 MG/DL (70-104); SODIUM 140 MMOL/L (135-145)
[2020-02-29 19:19] LABS: ALANINE AMINOTRANSFERASE 25 U/L (12-78); ALBUMIN 3.4 G/DL (3.4-5.0); ALBUMIN/GLOBULIN RATIO 1.1 (1.1-1.5); ALKALINE PHOSPHATASE 305 IU/L (46-116); ANION GAP 10 (8-16); ASPARTATE AMINO TRANSFERASE 17 U/L (10-37); BILIRUBIN,TOTAL 1.3 MG/DL (0.1-1.0); BLOOD UREA NITROGEN 21 MG/DL (7-18); BUN/CREATININE RATIO 24.4 (5.4-32.0); CALCIUM 9.4 MG/DL (8.5-10.1); CHLORIDE 107 MMOL/L (99-107); CREATININE 0.86 MG/DL (0.60-1.10); TOTAL CARBON DIOXIDE 23.2 MMOL/L (24-32); TOTAL PROTEIN 6.6 G/DL (6.4-8.2); eGFR 85 ML/MIN
[2020-02-29 19:25] LABS: ETHANOL < 0.010 GM/DL (0.0-0.010); MAGNESIUM 2.1 MG/DL (1.5-2.4)
[2020-02-29 19:29] LABS: CLARITY,URINE CLEAR (Clear); COLOR,URINE YELLOW (Yellow); GLUCOSE, URINE NEGATIVE (Neg); KETONES,URINE NEGATIVE (Neg); LEUKOCYTE ESTERASE ,URINE NEGATIVE (Neg); NITRITES, URINE NEGATIVE (Neg); OCCULT BLOOD,URINE NEGATIVE (Neg); PH,URINE 5.5 (4.8-8.0); PROTEIN,URINE NEGATIVE (Neg); UROBILINOGEN,URINE 0.2 E.U/dL (0.2-1.0)
[2020-02-29 19:35] LABS: UA COLLECTION TYPE STRAIGHT CATH
[2020-02-29 19:41] LABS: URINE AMPHETAMINE SCREEN NEGATIVE (Neg); URINE BARBITUATE SCREEN NEGATIVE (Neg); URINE BENZODIAZEPINES SCREEN NEGATIVE (Neg); URINE CANNABINOID SCREEN NEGATIVE (Neg); URINE COCAINE SCREEN NEGATIVE (Neg); URINE METHADONE SCREEN NEGATIVE (Neg); URINE OPIATE SCREEN NEGATIVE (Neg); URINE PHENCYCLIDINE SCREEN NEGATIVE (Neg)
== END 2020-02-29 19:54 ==
LOC: ER 18:12
DX: R41.0 Disorientation, unspecified (principal); G30.9 Alzheimer's disease, unspecified; F91.9 Conduct disorder, unspecified; Z98.890 Other specified postprocedural states; Z88.2 Allergy status to sulfonamides; Z79.899 Other long term (current) drug therapy; Z86.73 Personal history of transient ischemic attack (TIA), and cerebral infarction without residual deficits
CPT/HCPCS: 36415; 70450; 71045; 73502; 80053; 80305; 80320; 81003; 83735; 83880; 84484; 85025; 85610; 85730; 93005; 96360; 99285; J7030

== ENCOUNTER 2020-03-02 10:41 | Emergency (ER) | payer MEDICARE ==
[~2020-03-02] VITALS: Ht 165.1 cm; Wt 5.5 kg
--- NOTE | 2020-03-02 13:41 | NUR ---
TO XRAY W/ SO ESCORT
[2020-03-02 14:56] VITALS: BP 98/55
== END 2020-03-02 14:59 | disposition home or self-care (01) ==
LOC: ER 10:41
DX: F03.90 Unspecified dementia, unspecified severity, without behavioral disturbance, psychotic disturbance, mood disturbance, and anxiety (principal); M97.02XD Periprosthetic fracture around internal prosthetic left hip joint, subsequent encounter; Z88.2 Allergy status to sulfonamides; Z79.899 Other long term (current) drug therapy; X58.XXXA Exposure to other specified factors, initial encounter; Y93.89 Activity, other specified; Y92.89 Other specified places as the place of occurrence of the external cause; Y99.8 Other external cause status
CPT/HCPCS: 73502; 99284

== ENCOUNTER 2020-03-28 14:28 | Inpatient (IN) | payer MEDICARE, OTHER ==
[~2020-03-28] VITALS: Ht 165.1 cm; Wt 60.5 kg
[2020-03-28] MEDS ORDERED: CefTRIAXone 2gm/D5W 50ml 50 ML IV ONE (14:50)
[2020-03-28] MEDS ORDERED: normal saline 1000ML IV soln IV ONE (14:50)
[2020-03-28 15:32] LABS: BASOPHILS # (AUTO) 0.1 X10'3 (0-0.2); BASOPHILS % (AUTO) 0.5 % (0-1); EOSINOPHILS % (AUTO) 0.1 % (0-6); HEMATOCRIT 46.9 % (42.0-52.0); LYMPHOCYTES # (AUTO) 0.9 X10'3 (1.1-4.8); MEAN CORPUSCULAR HEMOGLOBIN 31.9 PG (27.0-31.0); MEAN CORPUSCULAR HGB CONC 32.1 g/dL (33.0-36.5); MEAN CORPUSCULAR VOLUME 99.6 FL (78-98); MEAN PLATELET VOLUME 10.7 FL (7.4-10.4); MONOCYTES # (AUTO) 0.6 X10'3 (0-0.9); MONOCYTES % (AUTO) 4.8 % (2-12); NEUTROPHILS # (AUTO) 11.2 X10'3 (1.8-7.7); NEUTROPHILS % (AUTO) 87.6 % (42-75); PLATELET COUNT 149 X10'3 (140-440); RED BLOOD COUNT 4.71 X10'6 (4.70-6.10); RED CELL DISTRIBUTION WIDTH 16.8 % (11.5-14.5); WHITE BLOOD COUNT 12.8 X10'3 (4.5-11.0)
[2020-03-28 15:34] LABS: CLARITY,URINE CLOUDY (Clear); GLUCOSE, URINE NEGATIVE (Neg); KETONES,URINE TRACE mg/dl (Neg); LEUKOCYTE ESTERASE ,URINE MODERATE (Neg); NITRITES, URINE NEGATIVE (Neg); OCCULT BLOOD,URINE MODERATE (Neg); PROTEIN,URINE 100 mg/dl (Neg)
[2020-03-28 15:40] LABS: COLOR,URINE DARK YELLOW (Yellow); UA COLLECTION TYPE STRAIGHT CATH
[2020-03-28 15:41] LABS: BACTERIA,URINE 4+ /HPF (Neg); MUCUS STRANDS MODERATE /LPF (Neg); SQUAMOUS EPITHELIAL CELL,UR FEW /LPF (FEW); TRANSITIONAL EPI CELLS,URINE FEW /HPF; WBC,URINE 50-100 /HPF (0-4)
[2020-03-28 15:42] LABS: RENAL CELLS, URINE FEW /HPF
[2020-03-28 15:46] LABS: ALANINE AMINOTRANSFERASE 33 U/L (12-78); ALBUMIN 3.8 G/DL (3.4-5.0); ALKALINE PHOSPHATASE 283 IU/L (46-116); ANION GAP 12 (8-16); ASPARTATE AMINO TRANSFERASE 21 U/L (10-37); BILIRUBIN,TOTAL 1.7 MG/DL (0.1-1.0); BLOOD UREA NITROGEN 66 MG/DL (7-18); CALCIUM 11.1 MG/DL (8.5-10.1); CHLORIDE 119 MMOL/L (99-107); GLUCOSE 128 MG/DL (70-104); TOTAL CARBON DIOXIDE 26.8 MMOL/L (24-32); TOTAL PROTEIN 7.5 G/DL (6.4-8.2); eGFR 58 ML/MIN
[2020-03-28 15:49] LABS: SODIUM 158 MMOL/L (135-145)
[2020-03-28 15:54] LABS: PLATELET ESTIMATE NORMAL
[2020-03-28 15:55] LABS: LARGE PLATELETS MODERATE
[2020-03-28 15:58] LABS: ANISOCYTOSIS 1+
--- NOTE | 2020-03-28 16:05 | NUR ---
NS fluids stopped at 600ml due to elevated sodium
[2020-03-28] MEDS: dextrose 5%-1/2 normal saline 1,000 ML IV SCH ×2 (16:23→18:15)
[2020-03-28] MEDS ORDERED: DOCU250C16 PO (16:40)
[2020-03-28] MEDS ORDERED: CALC-829 PO (16:40)
[2020-03-28] MEDS ORDERED: ACET-3068 PO (16:40)
[2020-03-28] MEDS ORDERED: ATOR10TA70 PO (16:40)
[2020-03-28] MEDS ORDERED: RISP0.5T3 PO (16:41)
[2020-03-28] MEDS ORDERED: potassium CL 10mEq/100ml bag 100 ML IV PRN (18:15)
[2020-03-28] MEDS ORDERED: acetaminophen 325mg tablet PO PRN (18:15)
[2020-03-28] MEDS ORDERED: magnesium 2GM in 50ml NS 50 ML IV PRN (18:15)
[2020-03-28] MEDS ORDERED: ondansetron/PF 4mg/2ml inj IV PRN (18:15)
[2020-03-28] MEDS ORDERED: magnesium Cl slow-release 64mg tablet PO PRN (18:15)
[2020-03-28] MEDS ORDERED: magnesium 4gm in 100ml NS 100 ML IV PRN (18:15)
[2020-03-28] MEDS ORDERED: potassium Cl 20 mEq SR tablet PO PRN ×2 (18:15)
[2020-03-28] MEDS: K and/or MAG REPLACEMENT MC SCH (20:00)
--- NOTE | 2020-03-28 20:33 | NUR ---
Patient in room ED 10. I have received report from DOUG Jason RN and had the opportunity to ask questions and assume patient care.
[2020-03-28 20:35] VITALS: BP 102/53
--- NOTE | 2020-03-28 22:03 | NUR ---
Unable to DART, patient has dementia and most times will not answer questions asked.
[2020-03-29] VITALS: BP 97/65
[2020-03-29] MEDS: dextrose 5%-1/2 normal saline 1,000 ML IV SCH ×5 (01:28→21:58)
[2020-03-29 05:23] LABS: BASOPHILS # (AUTO) 0.1 X10'3 (0-0.2); BASOPHILS % (AUTO) 0.6 % (0-1); EOSINOPHILS # (AUTO) 0.1 X10'3 (0-0.9); EOSINOPHILS % (AUTO) 0.8 % (0-6); HEMATOCRIT 37.5 % (42.0-52.0); HEMOGLOBIN 12.4 g/dl (14.0-17.9); LYMPHOCYTES # (AUTO) 0.7 X10'3 (1.1-4.8); LYMPHOCYTES % (AUTO) 8.5 % (21-51); MEAN CORPUSCULAR HEMOGLOBIN 32.6 PG (27.0-31.0); MEAN CORPUSCULAR HGB CONC 33.1 g/dL (33.0-36.5); MEAN CORPUSCULAR VOLUME 98.4 FL (78-98); MEAN PLATELET VOLUME 11.2 FL (7.4-10.4); MONOCYTES # (AUTO) 0.5 X10'3 (0-0.9); MONOCYTES % (AUTO) 6.1 % (2-12); NEUTROPHILS # (AUTO) 6.9 X10'3 (1.8-7.7); PLATELET COUNT 123 X10'3 (140-440); RED BLOOD COUNT 3.81 X10'6 (4.70-6.10); RED CELL DISTRIBUTION WIDTH 16.3 % (11.5-14.5); WHITE BLOOD COUNT 8.2 X10'3 (4.5-11.0)
[2020-03-29 05:37] LABS: ALBUMIN 2.7 G/DL (3.4-5.0); ANION GAP 8 (8-16); BLOOD UREA NITROGEN 52 MG/DL (7-18); BUN/CREATININE RATIO 54.2 (5.4-32.0); CALCIUM 9.9 MG/DL (8.5-10.1); CHLORIDE 122 MMOL/L (99-107); CREATININE 0.96 MG/DL (0.60-1.10); GLUCOSE 198 MG/DL (70-104); MAGNESIUM 2.3 MG/DL (1.5-2.4); POTASSIUM 3.2 MMOL/L (3.5-5.1); TOTAL CARBON DIOXIDE 26.7 MMOL/L (24-32); eGFR 74 ML/MIN
[2020-03-29 06:15] LABS: SODIUM 157 MMOL/L (135-145)
--- NOTE | 2020-03-29 06:35 | NUR ---
Problems reprioritized. Patient report given, questions answered & plan of care reviewed with ANAND Mendez.
--- NOTE | 2020-03-29 06:37 | NUR ---
Patient in room [facility] 353. I have received report from Rosa Isela Ashby RN and had the opportunity to ask questions and assume patient care.
[2020-03-29 07:30] VITALS: BP 96/43
[2020-03-29] MEDS: CefTRIAXone/D5W-Rocephin 1gm 50 ML IV SCH (07:48)
[2020-03-29] MEDS: K and/or MAG REPLACEMENT MC SCH ×2 (08:00→20:00)
[2020-03-29 08:05] LABS: ANISOCYTOSIS 1+
[2020-03-29 08:06] LABS: ELLIPTOCYTES FEW; PLATELET ESTIMATE DECREASED
[2020-03-29 08:07] LABS: LARGE PLATELETS FEW
--- NOTE | 2020-03-29 09:27 | NUR ---
Patient in room [facility] 353. I have received report from ANAND Mendez and had the opportunity to ask questions and assume patient care.
--- NOTE | 2020-03-29 09:37 | NUR ---
Problems reprioritized. Patient report given, questions answered & plan of care reviewed with ANAND Watts.
[2020-03-29] MEDS: potassium CL 10mEq/100ml bag 100 ML IV PRN ×4 (09:54→13:39)
[2020-03-29 11:00] VITALS: BP_SYST 85; BP_SYST 86; BP_DIAS 44; BP_DIAS 83
--- NOTE | 2020-03-29 11:06 | NUR ---
In agreement with Vanessa MICHEL's physical assessment.
--- NOTE | 2020-03-29 11:52 | NUR ---
PAGER ID: [phone] MESSAGE: [id number] Amauri Sky: BP 88/44 MAP (58) ANAND Watts Ext [phone] Addendum: 03/29/20 at 1314 by Mac Corrales RN Per Dr Kuhn no new orders continue to monitor patient.
--- NOTE | 2020-03-29 12:11 | NUR ---
Pt with a low Dave of 12. Per physical assessment pt with no edema or wounds. Pt currently NPO. Will continue to follow. Addendum: 03/29/20 at [address] Amended: Links added.
--- NOTE | 2020-03-29 14:20 | NUR ---
SEVERAL PHONE CALL ATTEMPTS MADE TO LINNEA TO HELP WITH MEDICAL HISTORY. NO ANSWER.
--- NOTE | 2020-03-29 15:32 | NUR ---
Malnutrition consult: Unable to obtain information from pt at this time as pt documented as A/O x 1 and confused with hx dementia. Pt with scaled wt hx of 56 kg taken 06/05/19 and 60.3 kg taken 12/14/2019, current documented wt is 60.45 kg. Wt appears stable. Pt currently NPO. Per physical assessment pt an aspiration risk. D/w RN who reports pt NPO d/t ALOC. Pt would benefit from BSS with ST prior to diet advancement. Pt documented with severe muscle weakness and no edema. Pt appears well developed, well nourished per ED report. Pt currently lacks a minimum of two criteria for malnutrition. Will continue to follow. Addendum: 03/29/20 at [address] Amended: Links added.
--- NOTE | 2020-03-29 18:37 | NUR ---
Problems reprioritized. Patient report given, questions answered & plan of care reviewed with ANAND Abdi.
--- NOTE | 2020-03-29 19:22 | NUR ---
I have received report from Mac MICHEL and had the opportunity to ask questions and assume patient care.
[2020-03-29 20:00] VITALS: BP 104/60
[2020-03-30] VITALS: BP 102/66
[2020-03-30] MEDS: dextrose 5%-1/2 normal saline 1,000 ML IV SCH ×5 (03:38→19:21)
[2020-03-30 05:18] LABS: BASOPHILS % (AUTO) 0.7 % (0-1); EOSINOPHILS # (AUTO) 0.1 X10'3 (0-0.9); EOSINOPHILS % (AUTO) 1.4 % (0-6); HEMATOCRIT 34.6 % (42.0-52.0); HEMOGLOBIN 11.2 g/dl (14.0-17.9); LYMPHOCYTES # (AUTO) 0.8 X10'3 (1.1-4.8); MEAN CORPUSCULAR HEMOGLOBIN 31.8 PG (27.0-31.0); MEAN CORPUSCULAR HGB CONC 32.3 g/dL (33.0-36.5); MEAN CORPUSCULAR VOLUME 98.4 FL (78-98); MEAN PLATELET VOLUME 10.2 FL (7.4-10.4); MONOCYTES # (AUTO) 0.5 X10'3 (0-0.9); NEUTROPHILS # (AUTO) 5.7 X10'3 (1.8-7.7); NEUTROPHILS % (AUTO) 79.9 % (42-75); PLATELET COUNT 87 X10'3 (140-440); RED BLOOD COUNT 3.52 X10'6 (4.70-6.10); RED CELL DISTRIBUTION WIDTH 16.7 % (11.5-14.5); WHITE BLOOD COUNT 7.2 X10'3 (4.5-11.0)
[2020-03-30 05:34] LABS: ALBUMIN 2.4 G/DL (3.4-5.0); ANION GAP 6 (8-16); BLOOD UREA NITROGEN 29 MG/DL (7-18); BUN/CREATININE RATIO 37.2 (5.4-32.0); CALCIUM 8.9 MG/DL (8.5-10.1); CHLORIDE 119 MMOL/L (99-107); CREATININE 0.78 MG/DL (0.60-1.10); GLUCOSE 126 MG/DL (70-104); MAGNESIUM 2.1 MG/DL (1.5-2.4); POTASSIUM 3.3 MMOL/L (3.5-5.1); SODIUM 150 MMOL/L (135-145); TOTAL CARBON DIOXIDE 24.7 MMOL/L (24-32); eGFR > 90 ML/MIN
--- NOTE | 2020-03-30 06:24 | NUR ---
Problems reprioritized. Patient report given, questions answered & plan of care reviewed with Gabriela MICHEL.
--- NOTE | 2020-03-30 06:43 | NUR ---
Patient in room [facility] 353. I have received report from rebekah pineda and had the opportunity to ask questions and assume patient care.
[2020-03-30 07:00] VITALS: BP 90/55
[2020-03-30] MEDS: CefTRIAXone/D5W-Rocephin 1gm 50 ML IV SCH (07:21)
[2020-03-30] MEDS: K and/or MAG REPLACEMENT MC SCH ×2 (08:39→19:24)
[2020-03-30] MEDS: potassium CL 10mEq/100ml bag 100 ML IV PRN ×4 (08:43→12:00)
[2020-03-30 10:00] VITALS: BP 92/56
--- NOTE | 2020-03-30 14:17 | NUR ---
PT ONLY TOOK A FEW BITES OF LUNCH. REFUSED ANYMORE Addendum: 03/30/20 at 1417 by Daphney Gale RN Amended: Links added.
--- NOTE | 2020-03-30 18:33 | NUR ---
I have received report from Gabriela Burch and had the opportunity to ask questions and assume patient care.
[2020-03-30] MEDS: lactobacillus rhamnosus 10,000 MMU CELLS/CAPSULE PO SCH (19:22)
[2020-03-30 20:00] VITALS: BP 102/58
[2020-03-31] VITALS: BP 95/51
[2020-03-31] MEDS: dextrose 5%-1/2 normal saline 1,000 ML IV SCH ×2 (02:01→10:11)
[2020-03-31 06:07] LABS: ALBUMIN 2.3 G/DL (3.4-5.0); ANION GAP 9 (8-16); BLOOD UREA NITROGEN 18 MG/DL (7-18); BUN/CREATININE RATIO 26.9 (5.4-32.0); CALCIUM 9.1 MG/DL (8.5-10.1); CHLORIDE 112 MMOL/L (99-107); CREATININE 0.67 MG/DL (0.60-1.10); GLUCOSE 107 MG/DL (70-104); MAGNESIUM 1.9 MG/DL (1.5-2.4); SODIUM 143 MMOL/L (135-145); TOTAL CARBON DIOXIDE 22.1 MMOL/L (24-32); eGFR > 90 ML/MIN
[2020-03-31 06:13] LABS: BASOPHILS # (AUTO) 0.1 X10'3 (0-0.2); BASOPHILS % (AUTO) 0.7 % (0-1); EOSINOPHILS # (AUTO) 0.2 X10'3 (0-0.9); EOSINOPHILS % (AUTO) 2.3 % (0-6); LYMPHOCYTES # (AUTO) 0.8 X10'3 (1.1-4.8); LYMPHOCYTES % (AUTO) 10.4 % (21-51); MEAN CORPUSCULAR HEMOGLOBIN 33.3 PG (27.0-31.0); MEAN CORPUSCULAR HGB CONC 34.2 g/dL (33.0-36.5); MEAN CORPUSCULAR VOLUME 97.4 FL (78-98); MEAN PLATELET VOLUME 10.8 FL (7.4-10.4); MONOCYTES # (AUTO) 0.5 X10'3 (0-0.9); MONOCYTES % (AUTO) 6.8 % (2-12); NEUTROPHILS # (AUTO) 5.8 X10'3 (1.8-7.7); NEUTROPHILS % (AUTO) 79.8 % (42-75); PLATELET COUNT 77 X10'3 (140-440); POTASSIUM 3.8 MMOL/L (3.5-5.1); WHITE BLOOD COUNT 7.3 X10'3 (4.5-11.0)
--- NOTE | 2020-03-31 06:42 | NUR ---
Patient in room [facility] 353. I have received report from Trinidad MICHEL and had the opportunity to ask questions and assume patient care.
--- NOTE | 2020-03-31 06:47 | NUR ---
Problems reprioritized. Patient report given, questions answered & plan of care reviewed with Carrol MICHEL.
[2020-03-31 07:00] VITALS: BP 94/50
[2020-03-31] MEDS: K and/or MAG REPLACEMENT MC SCH ×2 (08:00→20:00)
[2020-03-31] MEDS: CefTRIAXone/D5W-Rocephin 1gm 50 ML IV SCH (08:13)
[2020-03-31] MEDS: lactobacillus rhamnosus 10,000 MMU CELLS/CAPSULE PO SCH ×2 (08:15→20:00)
[2020-03-31 11:00] VITALS: BP 97/67
--- NOTE | 2020-03-31 13:45 | NUR ---
Per Dr. Kuhn, patient okay to have weight bearing. SHEILA Patino notified about this
--- NOTE | 2020-03-31 18:40 | NUR ---
Problems reprioritized. Patient report given, questions answered & plan of care reviewed with Marky MICHEL.
[2020-03-31 19:00] VITALS: BP 115/70
[2020-04-01] VITALS: BP 104/67
[2020-04-01] MEDS: dextrose 5%-1/2 normal saline 1,000 ML IV SCH ×3 (01:35→22:46)
[2020-04-01 05:09] LABS: BASOPHILS % (AUTO) 0.6 % (0-1); EOSINOPHILS # (AUTO) 0.1 X10'3 (0-0.9); EOSINOPHILS % (AUTO) 1.5 % (0-6); HEMATOCRIT 39.6 % (42.0-52.0); HEMOGLOBIN 13.4 g/dl (14.0-17.9); LYMPHOCYTES # (AUTO) 0.9 X10'3 (1.1-4.8); LYMPHOCYTES % (AUTO) 10.1 % (21-51); MEAN CORPUSCULAR HEMOGLOBIN 32.3 PG (27.0-31.0); MEAN CORPUSCULAR HGB CONC 33.9 g/dL (33.0-36.5); MEAN CORPUSCULAR VOLUME 95.3 FL (78-98); MONOCYTES # (AUTO) 0.5 X10'3 (0-0.9); MONOCYTES % (AUTO) 5.6 % (2-12); NEUTROPHILS % (AUTO) 82.2 % (42-75); PLATELET COUNT 91 X10'3 (140-440); RED BLOOD COUNT 4.16 X10'6 (4.70-6.10); RED CELL DISTRIBUTION WIDTH 15.9 % (11.5-14.5); WHITE BLOOD COUNT 8.5 X10'3 (4.5-11.0)
[2020-04-01 05:17] LABS: ALBUMIN 2.6 G/DL (3.4-5.0); ANION GAP 11 (8-16); BLOOD UREA NITROGEN 12 MG/DL (7-18); BUN/CREATININE RATIO 14.6 (5.4-32.0); CALCIUM 9.2 MG/DL (8.5-10.1); CHLORIDE 110 MMOL/L (99-107); CREATININE 0.82 MG/DL (0.60-1.10); GLUCOSE 111 MG/DL (70-104); POTASSIUM 3.3 MMOL/L (3.5-5.1); SODIUM 144 MMOL/L (135-145); TOTAL CARBON DIOXIDE 23.3 MMOL/L (24-32); eGFR 89 ML/MIN
--- NOTE | 2020-04-01 06:39 | NUR ---
Patient in room [facility] 353. I have received report from Marky MICHEL and had the opportunity to ask questions and assume patient care.
[2020-04-01 07:43] VITALS: BP 101/59
[2020-04-01] MEDS: K and/or MAG REPLACEMENT MC SCH ×3 (08:00→20:00)
[2020-04-01] MEDS: CefTRIAXone/D5W-Rocephin 1gm 50 ML IV SCH (08:43)
[2020-04-01] MEDS: lactobacillus rhamnosus 10,000 MMU CELLS/CAPSULE PO SCH ×2 (08:43→20:00)
--- NOTE | 2020-04-01 11:50 | NUR ---
MESSAGE: [facility] [phone] re: Willylissette Pepper patient seems very anxious and is trying to get out of bed often. Officer is not able to redirect nor can I did you want to add any PRN for patient. Thanks
--- NOTE | 2020-04-01 12:31 | NUR ---
Notified [facility] of MD request for psyche consult at this time.
[2020-04-01 12:53] VITALS: BP 95/67
[2020-04-01] MEDS: risperiDONE 0.25mg tablet PO SCH (13:19)
[2020-04-01] MEDS ORDERED: magnesium Cl slow-release 64mg tablet PO PRN (16:30)
[2020-04-01] MEDS ORDERED: magnesium 2GM in 50ml NS 50 ML IV PRN (16:30)
[2020-04-01] MEDS ORDERED: magnesium 4gm in 100ml NS 100 ML IV PRN (16:30)
[2020-04-01] MEDS ORDERED: potassium Cl 20 mEq SR tablet PO PRN ×2 (16:30)
[2020-04-01] MEDS: potassium CL 10mEq/100ml bag 100 ML IV PRN ×2 (17:23→22:45)
[2020-04-01 18:00] VITALS: BP 116/70
--- NOTE | 2020-04-01 18:54 | NUR ---
Problems reprioritized. Patient report given, questions answered & plan of care reviewed with Marky MICHEL.
[2020-04-02] VITALS: BP 111/58
[2020-04-02] MEDS: potassium CL 10mEq/100ml bag 100 ML IV PRN ×2 (00:37→03:19)
[2020-04-02 05:28] LABS: BASOPHILS # (AUTO) 0.1 X10'3 (0-0.2); BASOPHILS % (AUTO) 1.2 % (0-1); EOSINOPHILS # (AUTO) 0.1 X10'3 (0-0.9); EOSINOPHILS % (AUTO) 1.6 % (0-6); HEMATOCRIT 36.5 % (42.0-52.0); HEMOGLOBIN 12.4 g/dl (14.0-17.9); LYMPHOCYTES # (AUTO) 0.8 X10'3 (1.1-4.8); LYMPHOCYTES % (AUTO) 9.6 % (21-51); MEAN CORPUSCULAR HEMOGLOBIN 32.5 PG (27.0-31.0); MEAN CORPUSCULAR HGB CONC 33.9 g/dL (33.0-36.5); MEAN CORPUSCULAR VOLUME 95.9 FL (78-98); MEAN PLATELET VOLUME 10.8 FL (7.4-10.4); MONOCYTES # (AUTO) 0.5 X10'3 (0-0.9); MONOCYTES % (AUTO) 6.3 % (2-12); NEUTROPHILS # (AUTO) 6.8 X10'3 (1.8-7.7); NEUTROPHILS % (AUTO) 81.3 % (42-75); PLATELET COUNT 107 X10'3 (140-440); RED BLOOD COUNT 3.81 X10'6 (4.70-6.10); WHITE BLOOD COUNT 8.3 X10'3 (4.5-11.0)
[2020-04-02 05:37] LABS: ALBUMIN 2.4 G/DL (3.4-5.0); ANION GAP 7 (8-16); BLOOD UREA NITROGEN 13 MG/DL (7-18); BUN/CREATININE RATIO 17.3 (5.4-32.0); CALCIUM 8.8 MG/DL (8.5-10.1); CHLORIDE 111 MMOL/L (99-107); CREATININE 0.75 MG/DL (0.60-1.10); GLUCOSE 109 MG/DL (70-104); MAGNESIUM 1.8 MG/DL (1.5-2.4); POTASSIUM 3.6 MMOL/L (3.5-5.1); SODIUM 142 MMOL/L (135-145); TOTAL CARBON DIOXIDE 23.7 MMOL/L (24-32); eGFR > 90 ML/MIN
--- NOTE | 2020-04-02 06:55 | NUR ---
Patient in room [facility] 353. I have received report from Marky MICHEL and had the opportunity to ask questions and assume patient care.
[2020-04-02 07:16] VITALS: BP 107/67
[2020-04-02 07:26] VITALS: BP 107/67
[2020-04-02] MEDS: K and/or MAG REPLACEMENT MC SCH ×4 (08:00→21:00)
[2020-04-02] MEDS: lactobacillus rhamnosus 10,000 MMU CELLS/CAPSULE PO SCH ×2 (08:33→20:54)
[2020-04-02] MEDS: CefTRIAXone/D5W-Rocephin 1gm 50 ML IV SCH (08:34)
[2020-04-02] MEDS: risperiDONE 0.25mg tablet PO SCH (08:34)
[2020-04-02 11:27] VITALS: BP 93/58
--- NOTE | 2020-04-02 12:10 | NUR ---
MESSAGE: [facility]urg [phone] RE: [phone] Sky. physical therapy wont work with patients until weight bearing status is addressed pertaining to sacral fracture. Thanks Mango.
--- NOTE | 2020-04-02 12:32 | NUR ---
Spoke with Dr. Kan, who spoke with Dr. Pantoja who stated patient ct reults should not be problem. Order of WBAT from dr. kan at this time.
[2020-04-02] MEDS ORDERED: magnesium hydroxide 30ml (MOM) UD suspension PO ONE (14:20)
[2020-04-02] MEDS ORDERED: magnesium hydroxide 30ml (MOM) UD suspension PO PRN (14:30)
--- NOTE | 2020-04-02 16:32 | NUR ---
Initial: Pt admit w/ ALOC DX advanced dementia, metabolic encephalopathy, and hypernatremia which has resolved receiving Dex/NS for hydration per DO/EMR. AOx1 confused advanced to pureed/thin diet w/ feeder per [employer] LO[employer]ER recs PO fluctuates 0-25% avg meals not meeting needs. RD recommends ensure enlive BIDLD given pt current protein/kcal needs; DO notified. No BM yet this admit 5 days w/ PRN MoM added today pending administration at this time per RN report. IF poor PO persists will likely meet minimum malnutrition criteria. Will continue to monitor for PO acceptance and additional protein/kcal needs this admit. Rec: 1. continue pureed/thin diet w/ feeder per [employer]ER LOADER/DO recs; encourage PO 2. ensure enlive BIDLD 3. routine bowel care 4. scaled wt this admit Addendum: 04/02/20 at [address] Amended: Links added.
[2020-04-02] MEDS: dextrose 5%-1/2 normal saline 1,000 ML IV SCH (16:35)
[2020-04-02 18:00] VITALS: BP 111/67
--- NOTE | 2020-04-02 18:38 | NUR ---
Problems reprioritized. Patient report given, questions answered & plan of care reviewed with Leida MICHEL.
--- NOTE | 2020-04-02 19:58 | NUR ---
Patient in room [facility] 353. I have received report from Doug MICHEL and had the opportunity to ask questions and assume patient care. Patient was resting comfortably during report with Lane at bedside. No acute distress was noted.
[2020-04-03] VITALS: BP 111/72
--- NOTE | 2020-04-03 06:36 | NUR ---
Problems reprioritized. Patient report given, questions answered & plan of care reviewed with Doug MICHEL. Patient was resting comfortably during report.
[2020-04-03] MEDS: dextrose 5%-1/2 normal saline 1,000 ML IV SCH (06:55)
[2020-04-03 07:48] LABS: MAGNESIUM 2.2 MG/DL (1.5-2.4); POTASSIUM 4.1 MMOL/L (3.5-5.1)
[2020-04-03 07:52] VITALS: BP 122/69
[2020-04-03] MEDS: lactobacillus rhamnosus 10,000 MMU CELLS/CAPSULE PO SCH (08:00)
[2020-04-03] MEDS: CefTRIAXone/D5W-Rocephin 1gm 50 ML IV SCH (08:00)
[2020-04-03] MEDS: risperiDONE 0.25mg tablet PO SCH (08:00)
[2020-04-03] MEDS: K and/or MAG REPLACEMENT MC SCH ×2 (08:00)
[2020-04-03 11:00] VITALS: BP 120/75
[2020-04-03] MEDS ORDERED: RISP0.253 PO (11:01)
--- NOTE | 2020-04-03 14:50 | NUR ---
patient discharge was done with classifications officer cc/cm, patient taken back to senior living via [facility]. Patient iv taken out at the time of discharge and patient left with the condom catheter.
--- NOTE | 2020-04-03 14:50 | NUR ---
Patient IV taken out at the time of discharge by resource RN
== END 2020-04-03 14:46 | DRG 871 ==
LOC: ER 14:28 → ED HOLD 18:15 → EEVIPCON 18:15 → SUR 3N 20:35
PROVIDERS: ADMIT Internal Medicine; ATTEND Internal Medicine
DX: A41.9 Sepsis, unspecified organism (principal); G92 Toxic encephalopathy; E87.0 Hyperosmolality and hypernatremia; F01.51 Vascular dementia, unspecified severity, with behavioral disturbance; N17.9 Acute kidney failure, unspecified; N39.0 Urinary tract infection, site not specified; F05 Delirium due to known physiological condition; E87.6 Hypokalemia; E78.5 Hyperlipidemia, unspecified; Z86.73 Personal history of transient ischemic attack (TIA), and cerebral infarction without residual deficits; Z88.2 Allergy status to sulfonamides; Z79.899 Other long term (current) drug therapy
CPT/HCPCS: 36415; 70450; 71045; 74176; 80048; 80053; 81001; 82948; 83605; 83735; 84132; 84145; 85008; 85025; 87040; 87081; 87088; 92508; 92616; 93005; 97112; 97161; 97530; 99285; G0378; J0696; J3480; J7030